=== PATIENT | female | born 1980 | race Two or more races ===

== ENCOUNTER 2017-11-09 15:21 | Emergency (ER) | payer SELFPAY ==
[~2017-11-09] VITALS: Ht 170.2 cm; Wt 74.4 kg
[2017-11-09 15:21] VITALS: BP 105/79
--- NOTE | 2017-11-09 16:30 | NUR ---
PATIENT REFUSED TO SIGN THE DISCHARGE PAPER.
[2017-11-09] MEDS: ONDANSETRON 4 MG TAB.RAPDIS SL ONE (17:35)
[2017-11-09] MEDS: HYDROCODONE/APAP 10/325MG 1 EA TABLET PO ONE (17:35)
--- NOTE | 2017-11-09 17:35 | NUR ---
PATIENT DID NOT RECEIVE THE MEDICATION, PATIENT LEFT BEFORE MEDICATION WAS GIVEN. ESTHER FORMAN MADE AWARE.
[2017-11-09] MEDS ORDERED: HYDROCODONE/APAP 10/325MG 1 EA TABLET ONE (19:13)
[2017-11-09] MEDS ORDERED: ONDANSETRON 4 MG TAB.RAPDIS ONE (19:13)
== END 2017-11-09 16:30 | disposition home or self-care (01) ==
LOC: ER 15:23
DX: M54.42 Lumbago with sciatica, left side (principal); Z76.5 Malingerer [conscious simulation]
CPT/HCPCS: A4606; Q0162; Z7502; Z7610